=== PATIENT | female | born 1965 ===

== ENCOUNTER 2018-04-06 11:01 | Outpatient (CLI) | payer OTHER | END 2018-04-06 11:15 | disposition home or self-care (01) | LOC: OFIC 805 11:01 | DX: J30.89 Other allergic rhinitis (principal); J38.2 Nodules of vocal cords; R09.81 Nasal congestion ==

== ENCOUNTER 2018-07-17 10:54 | Outpatient (CLI) | payer OTHER ==
[~2018-07-17] VITALS: Ht 152.4 cm; Wt 80.7 kg
== END 2018-07-17 11:15 | disposition home or self-care (01) ==
LOC: OFIC 805 10:54
DX: J30.89 Other allergic rhinitis (principal); R09.81 Nasal congestion

== ENCOUNTER 2018-08-23 12:17 | Outpatient (CLI) | payer OTHER | END 2018-08-23 12:35 | disposition home or self-care (01) | LOC: OFIC 805 12:17 | DX: R09.81 Nasal congestion (principal); J30.89 Other allergic rhinitis; J38.2 Nodules of vocal cords; K21.0 Gastro-esophageal reflux disease with esophagitis ==

== ENCOUNTER 2018-11-24 11:13 | Outpatient (CLI) | payer OTHER ==
[~2018-11-24] VITALS: Ht 152.4 cm; Wt 85.3 kg
== END 2018-11-24 11:30 | disposition home or self-care (01) ==
LOC: OFIC 805 11:13
DX: R09.81 Nasal congestion (principal); J30.89 Other allergic rhinitis

== ENCOUNTER 2019-03-28 11:51 | Outpatient (CLI) | payer OTHER ==
[~2019-03-28] VITALS: Ht 152.4 cm; Wt 84.4 kg
== END 2019-03-28 12:10 | disposition home or self-care (01) ==
LOC: OFIC 805 11:51
DX: J30.89 Other allergic rhinitis (principal); R09.81 Nasal congestion; L29.9 Pruritus, unspecified

== ENCOUNTER → 2020-09-29 | Outpatient (CLI) | payer OTHER | END | disposition home or self-care (01) | LOC: OFIC 805 11:30 | PROVIDERS: ATTEND Otolaryngology | DX: J30.89 Other allergic rhinitis (principal); J38.2 Nodules of vocal cords; R09.81 Nasal congestion; K21.00 Gastro-esophageal reflux disease with esophagitis, without bleeding ==